=== PATIENT | female | born 1995 | race Caucasian/White ===

== ENCOUNTER 2019-12-21 13:39 | Emergency (ER) | payer BC ==
[2019-12-21 13:52] VITALS: BP 124/76; PULSE 77; TEMP 98.5
[2019-12-21] MEDS ORDERED: KETOROLAC 60 MG/2 ML VIAL IM STA (14:12)
[2019-12-21 14:21] VITALS: RESP 18
--- NOTE | 2019-12-21 14:46 | ED ---
General Adult HPI - General Chief complaint: Upper Respiratory Infection Stated complaint: left side rib pain Time Seen by Provider: 12/21/19 13:56 Source: patient, RN notes reviewed, old records reviewed Mode of arrival: ambulatory Limitations: no limitations - History of Present Illness Initial comments: 24-year-old female patient with past history of IUD use presents to ED for chief complaint of approximately 1 month of productive cough. Patient worsened for the last 2 days she has been experiencing left lateral rib pain. Patient is under her left breast. Reports that is reproducible upon palpation. Reports that is slightly pleuritic in nature. Denies any other complaints at this time. Denies a chance of being . Systemic: Pt denies fatigue, fever/chills, rash. Pt denies weakness, night sweats, weight loss. Neuro: Pt denies headache, visual disturbances, syncope or pre-syncope. HEENT: Pt denies ocular discharge or irritation, otalgia, rhinorrhea, pharyngitis or notable lymphadenopathy. Cardiopulmonary: Pt denies chest pain, SOB, heart palpitations, dyspnea on exertion. Abdominal/GI: Pt denies abdominal pain, n/v/d. : Pt denies dysuria, burning w/ urination, frequency/urgency. Denies new onset urinary or bowel incontinence. MSK: Pt denies myalgia, loss of strength or function in extremities. Neuro: Pt denies new onset weakness, paresthesias. - Related Data Allergies Allergy/AdvReac Type Severity Reaction Status Date / Time No Known Allergies Allergy Verified 12/21/19 13:50 Review of Systems ROS Statement: Those systems with pertinent positive or pertinent negative responses have been documented in the HPI. ROS Other: All systems not noted in ROS Statement are negative. Past Medical History Past Medical History: No Reported History History of Any Multi-Drug Resistant Organisms: None Reported Past Surgical History: Adenoidectomy Past Psychological History: No Psychological Hx Reported Smoking Status: Never smoker Past Alcohol Use History: Occasional Past Drug Use History: None Reported General Exam - General Exam Comments Initial Comments: Constitutional: NAD, AOX3, Pt has pleasant affect. HEENT: NC/AT, trachea midline, neck supple, no lymphadenopathy. Posterior pharynx non erythematous, without exudates. External ears appear normal, without discharge. Mucous membranes moist. Eyes PERRLA, EOM intact. There is no scleral icterus. No pallor noted. Cardiopulmonary: RRR, no murmurs, rubs or gallops, no JVD noted. Lungs CTAB in anterior and posterior lindsey. No peripheral edema. Abdominal exam: Abdomen soft and non-distended. Abdomen non-tender to palpation in all 4 quadrants. Bowel sounds active in LLQ. No hepatosplenomegaly. No ecchymosis Neuro: CN II-XII grossly intact. No nuchal rigidity. No raccon eyes, no michel sign, no hemotympanum. No cervical spinal tenderness. MSK: No posterior calf tenderness bilaterally, homans sign negative bilaterally. Posterior tibialis and radial pulse +2 bilaterally. Sensation intact in upper and lower extremities. Full active ROM in upper and lower extremities, 5/5 stregnth. Reproducible tenderness under her left breast region. Limitations: no limitations Course Vital Signs 12/21/19 12/21/19 12/21/19 13:48 14:19 15:12 Temperature 98.5 F 98.5 F Pulse Rate 77 77 Respiratory 16 18 18 Rate Blood Pressure 124/76 124/76 O2 Sat by Pulse 98 98 Oximetry Medical Decision Making - Medical Decision Making 24-year-old female patient with past history of IUD use presents to ED for chief complaint of approximately 1 month of productive cough. Patient worsened for the last 2 days she has been experiencing left lateral rib pain. Patient is under her left breast. Reports that is reproducible upon palpation. Reports that is slightly pleuritic in nature. Denies any other complaints at this time. Denies a chance of being . Patient also signs are stable, afebrile. Physical exam displayed discomfort. Donohue upon palpation. EKG is nonischemic. Chest x-ray displayed no acute process. Influenza is negative. Patient does report that the pain with palpation is the discomfort that she was experiencing. Pt feels much improved with toradol. Patient denies any recent surgery, extended travel, history of cancer or blood clot. Patient likely experiencing pleurisy. She'll be discharged with anti-inflammatories, return to ER if condition worsens. Case discussed in depth with Dr. Arcos. - Lab Data Lab Results 12/21/19 Range/Units 14:30 Influenza Type A RNA Not Detected (Not Detectd) Influenza Type B (PCR) Not Detected (Not Detectd) - EKG Data -: EKG Interpreted by Me (and Dr. Arcos ) EKG Comments: Ventricular rate 80, RAMON 152, QRS 76, QT/QTC 366 is 422. Normal sinus rhythm, possible left atrial enlargement, borderline EKG, no concern for acute ischemia. Disposition Clinical Impression: Pleurisy, Cough Disposition: HOME SELF-CARE Condition: Stable Instructions (If sedation given, give patient instructions): Pleurisy (ED), Acute Cough (ED) Additional Instructions: Follow-up with primary care provider tomorrow. Use ibuprofen and Tylenol for discomfort. Return immediately to ER if condition worsens in any way. Is patient prescribed a controlled substance at d/c from ED?: No Referrals: None,Stated [Primary Care Provider] - 1-2 days [facility] [NON-STAFF] - 1-2 days
--- NOTE | 2019-12-21 14:50 | XR ---
EXAMINATION TYPE: XR chest 2V DATE OF EXAM: 12/21/2019 COMPARISON: NONE HISTORY: Left-sided chest pain and flulike symptoms TECHNIQUE: Frontal and lateral views of the chest are obtained. FINDINGS: There is no focal air space opacity, pleural effusion, or pneumothorax seen. The cardiac silhouette size is within normal limits. The osseous structures are intact. IMPRESSION: No acute cardiopulmonary process.
== END 2019-12-21 15:29 | disposition home or self-care (01) ==
LOC: EC 13:39
DX: R09.1 Pleurisy (principal); R05 Cough; Z97.5 Presence of (intrauterine) contraceptive device
CPT/HCPCS: 93005; 87502; 71046; 99284; 96372; J1885